=== PATIENT | female | born 1970 | race African-American/Black ===

== ENCOUNTER 2018-01-09 21:03 | Emergency (ER) | payer BC ==
[~2018-01-09] VITALS: Ht 167.6 cm; Wt 74.8 kg
[2018-01-09 21:10] VITALS: BP 156/72
[2018-01-09] MEDS ORDERED: NKM (21:12)
[2018-01-09] MEDS ORDERED: TAMIFLU75 MG ORAL (21:32)
[2018-01-09] MEDS ORDERED: FLONASE ALLERG9.9 ML NS (21:32)
[2018-01-09 21:41] VITALS: BP 156/72
[2018-01-09] MEDS ORDERED: Ketorolac 60mg Inj IM ONE (21:45)
--- NOTE | 2018-01-09 22:01 | Emergency Room Report ---
History of Present Illness General Chief Complaint: Flu Like Symptoms Source: Patient Present Illness HPI 47-year-old female walks in with one day of generalized body aches, headache, sinus congestion and "feels her to have the flu" did not get a flu vaccine this year. Denies chest pain, shortness of breath, cough, URI symptoms, sore throat. Positive sick contacts at work Allergies: Coded Allergies: ACETAMINOPHEN (Verified Allergy, Unknown, 01/09/18) HYDROCODONE (Verified Allergy, Unknown, 01/09/18) Patient History Past Medical History: none Past Surgical History: none Pertinent Family History: none Social History: Denies: smoking, alcohol use, drug use Last Menstrual Period: last week Now: No Immunizations: UTD Reviewed Nursing Documentation: PMH: Agreed, PSxH: Agreed Nursing Documentation-PMH Past Medical History: No Stated History Review of Systems All Other Systems: negative except mentioned in HPI Physical Exam Vital Signs Date Time Temp Pulse Resp B/P (MAP) Pulse Ox O2 Delivery O2 Flow Rate FiO2 01/09/18 21:08 100.0 116 20 156/72 97 Room Air 100.0 Sp02 EP Interpretation: reviewed, normal General Appearance: normal inspection, well appearing, no apparent distress, alert, GCS 15, non-toxic Head: normocephalic, atraumatic Eyes: bilateral eye PERRL, bilateral eye EOMI ENT: normal ENT inspection, hearing grossly normal, normal pharynx, no angioedema, normal voice, TMs + canals normal, uvula midline, moist mucus membranes Neck: normal inspection, full range of motion, supple, thyroid normal, no meningismus, no bony tend Respiratory: normal inspection, lungs clear, normal breath sounds, no rhonchi, no respiratory distress, no retraction, no accessory muscle use, no wheezing, speaking full sentences Cardiovascular #1: regular rate, rhythm, no edema, no JVD, normal capillary refill Gastrointestinal: normal inspection, normal bowel sounds, non tender, soft, no mass, no peritonitis, non-distended, no guarding, no hernia, no pulsatile mass Genitourinary: no CVA tenderness Musculoskeletal: normal inspection, back normal, normal range of motion, no calf tenderness, pelvis stable, Alberto's Sign negative Neurologic: normal inspection, alert, oriented x3, responsive, manager integrated III-XII nml as tested, motor strength/tone normal, cerebellar normal, normal gait, speech normal Psychiatric: normal inspection, judgement/insight normal, mood/affect normal, no suicidal/homicidal ideation, no delusions Skin: normal inspection, normal color, no rash Lymphatic: normal inspection, no adenopathy Medical Decision Making Diagnostic Impression: Primary Impression: Influenza-like symptoms ER Course Vital signs stable, afebrile Not septic appearing No comorbidities or concern for serious illness from influenza Rx tamiflu, flonase, supportive Tx Close PMD followup Last Vital Signs Date Time Temp Pulse Resp B/P (MAP) Pulse Ox O2 Delivery O2 Flow Rate FiO2 01/09/18 21:41 100.0 116 20 156/72 97 Room Air 212.0 Status: improved Disposition: HOME, SELF-CARE Condition: Improved Scripts Fluticasone Propionate (Flonase Allergy Relief) 9.9 Ml [place].susp 9.9 ML NS BID for congestion for 7 Days, #1 UNIT Prov: SHRUTHI LOTT M.D. 01/09/18 Oseltamivir Phosphate (Tamiflu) 75 Mg Capsule 75 MG ORAL TWICE A DAY for 5 Days, #10 CAP Prov: SHRUTHI LOTT M.D. 01/09/18 Patient Instructions: Influenza, Adult, [id number] SHRUTHI LOTT M.D. Jan 09, 2018 22:01
== END 2018-01-09 21:42 | disposition home or self-care (01) ==
LOC: EMR 21:30
DX: J11.1 Influenza due to unidentified influenza virus with other respiratory manifestations (principal); Z88.6 Allergy status to analgesic agent; Z88.8 Allergy status to other drugs, medicaments and biological substances
CPT/HCPCS: 96372; 99284